=== PATIENT | male | born 1995 | race American Indian/Alaskan Native ===

== ENCOUNTER 2020-07-03 20:08 | Emergency (ER) | payer OTHER ==
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
[2020-07-03] MEDS ORDERED: IBUPROFEN 800 MG TAB PO ONE (23:34)
[2020-07-04 03:25] VITALS: BP 139/71
== END 2020-07-04 00:01 | disposition home or self-care (01) ==
LOC: ED 20:08
DX: S09.90XA Unspecified injury of head, initial encounter (principal); R03.0 Elevated blood-pressure reading, without diagnosis of hypertension; Z79.899 Other long term (current) drug therapy; X58.XXXA Exposure to other specified factors, initial encounter; Y93.89 Activity, other specified; Y92.89 Other specified places as the place of occurrence of the external cause; Y99.8 Other external cause status
CPT/HCPCS: 70450

== ENCOUNTER 2020-12-30 19:37 | Emergency (ER) | payer OTHER, BC ==
[2020-12-30 23:11] VITALS: BP 121/73
== END 2020-12-31 01:35 | disposition home or self-care (01) ==
LOC: ED 19:37
DX: S09.90XA Unspecified injury of head, initial encounter (principal); M62.838 Other muscle spasm; M54.2 Cervicalgia; M62.830 Muscle spasm of back; M54.5 Low back pain; G44.309 Post-traumatic headache, unspecified, not intractable; Z72.89 Other problems related to lifestyle; V89.2XXA Person injured in unspecified motor-vehicle accident, traffic, initial encounter; Y93.89 Activity, other specified; Y92.488 Other paved roadways as the place of occurrence of the external cause; Y99.8 Other external cause status
CPT/HCPCS: 70450; 72040; 72125; 99284